=== PATIENT | male | born 1965 | race African-American/Black ===

== ENCOUNTER 2021-10-25 22:20 | Emergency (ER) | payer OTHER ==
[~2021-10-25] VITALS: Ht 172.7 cm; Wt 89.8 kg
[2021-10-25 23:11] LABS: PLATELET COUNT 98 K/uL (142-355)
[2021-10-25 23:20] LABS: POTASSIUM 3.7 mmol/L (3.6-5.2)
[2021-10-26] VITALS: BP 141/71; TEMP 97.9
[2021-10-26] MEDS ORDERED: ALBUTEROL108 MCG/AC INH (07:50)
[2021-10-26] MEDS ORDERED: ASPIRIN 8181 MG PO (07:51)
[2021-10-26] MEDS ORDERED: ASPIRIN ADULT325 MG PO (07:51)
[2021-10-26] MEDS ORDERED: LIPITOR40 MG PO (07:52)
[2021-10-26] MEDS ORDERED: BUDE1AER3 INH (07:53)
[2021-10-26] MEDS ORDERED: CLON0.5T36 PO (07:54)
[2021-10-26] MEDS ORDERED: DICLOFENAC SODIUM1 % TD (07:55)
[2021-10-26] MEDS ORDERED: ELIQUIS5 MG PO (07:56)
[2021-10-26] MEDS ORDERED: FE TABS325 MG PO (07:57)
[2021-10-26] MEDS ORDERED: FURO40TA93 PO (07:58)
[2021-10-26] MEDS ORDERED: IBU800 MG PO (07:59)
[2021-10-26] MEDS ORDERED: INSU100I SC (08:01)
[2021-10-26] MEDS ORDERED: GENERLAC10 GM/15 M PO (08:02)
[2021-10-26] MEDS ORDERED: LEVEMIR FL100 UNIT/M SC (08:03)
[2021-10-26] MEDS ORDERED: METHADONE10 MG PO (08:04)
[2021-10-26] MEDS ORDERED: MONTELUKAST SOD10 MG PO (08:05)
[2021-10-26] MEDS ORDERED: METHOCARBAMOL PO (08:05)
[2021-10-26] MEDS ORDERED: NASACORT A55 MCG/ACT NAS (08:06)
[2021-10-26] MEDS ORDERED: OYSTER SHELL C500 M4 PO (08:07)
[2021-10-26] MEDS ORDERED: PANTOPRAZOLE SO40 M1 PO (08:08)
[2021-10-26] MEDS ORDERED: PREGABALIN150 MG PO (08:08)
[2021-10-26] MEDS ORDERED: FLUO10CA2 PO (08:09)
[2021-10-26] MEDS ORDERED: TAMSULOSIN0.4 MG PO (08:10)
[2021-10-26] MEDS ORDERED: THERA-M PO (08:11)
[2021-10-26] MEDS ORDERED: TRAZODONE HYDR150 MG PO (08:12)
[2021-10-26] MEDS ORDERED: TYLENOL325 MG PO (08:14)
[2021-10-26] MEDS ORDERED: VITAMIN B-121000 MC2 PO (08:14)
[2021-10-26] MEDS ORDERED: ASCO500T18 PO (08:21)
[2021-10-26] MEDS ORDERED: XIFAXAN550 MG PO (08:22)
== END 2021-10-26 00:05 | disposition still patient (30) ==
LOC: ED 22:20
PROVIDERS: Emergency Medicine Emergency Medical Services
DX: R46.89 Other symptoms and signs involving appearance and behavior (principal); L03.116 Cellulitis of left lower limb; Z11.52 Encounter for screening for COVID-19; Z04.6 Encounter for general psychiatric examination, requested by authority
CPT/HCPCS: 36415; 80053; 81000; 85027; 87040; 87070; 87205; 87635; 93005; 96365; 99283; 99284; J2543; U0003

== ENCOUNTER 2023-02-19 18:54 | Emergency (ER) | payer OTHER ==
[~2023-02-19] VITALS: Ht 172.7 cm; Wt 68.0 kg
[~2023-02-19 18:54] MED LIST: ALBUTEROL108 MCG/AC INH; ASCO500T18 PO; ASPIRIN 8181 MG PO; ASPIRIN ADULT325 MG PO; BUDE1AER3 INH; CLON0.5T36 PO; DICLOFENAC SODIUM1 % TD; ELIQUIS5 MG PO; FE TABS325 MG PO; FLUO10CA2 PO; FURO40TA93 PO; GENERLAC10 GM/15 M PO; IBU800 MG PO; INSU100I SC; INSU100P SC; LEVEMIR FL100 UNIT/M SC; LIPITOR40 MG PO; METHADONE10 MG PO; METHOCARBAMOL PO; MONTELUKAST SOD10 MG PO; NASACORT A55 MCG/ACT NAS; OLAN2.5T2 PO; OXCARBAZEPIN300 MG PO; OYSTER SHELL C500 M4 PO; PANTOPRAZOLE SO40 M1 PO; PREGABALIN150 MG PO; ROBAXIN-750750 MG PO; TAMSULOSIN0.4 MG PO; THERA-M PO; TRAZODONE HYDR150 MG PO; TYLENOL325 MG PO; VITAMIN B-121000 MC2 PO; XIFAXAN550 MG PO
[2023-02-19 18:56] VITALS: BP 161/80; TEMP 97.5
[2023-02-19 19:26] LABS: PLATELET COUNT 129 K/uL (142-355)
[2023-02-19 19:32] LABS: POTASSIUM 4.7 mmol/L (3.6-5.2)
[2023-02-20] MEDS ORDERED: BAYER ASPIRIN E81 MG PO (07:51)
[2023-02-20] MEDS ORDERED: LIPITOR40 MG PO (07:52)
[2023-02-20] MEDS ORDERED: FLUOXETINE20 MG PO (07:52)
[2023-02-20] MEDS ORDERED: FURO40TA93 PO (07:53)
[2023-02-20] MEDS ORDERED: MIRALAX17 GM PO (07:55)
[2023-02-20] MEDS ORDERED: MULTIVITAMIN1 TA1 PO (07:56)
[2023-02-20] MEDS ORDERED: MONT10TA PO (07:56)
[2023-02-20] MEDS ORDERED: OYSTER SHELL C500 M4 PO (07:57)
[2023-02-20] MEDS ORDERED: PANTOPRAZOLE 40MG TA PO (07:59)
[2023-02-20] MEDS ORDERED: FAMO20TA4 PO (07:59)
[2023-02-20] MEDS ORDERED: KLOR-CON M1010 MEQ PO (08:01)
[2023-02-20] MEDS ORDERED: PRED20TA27 PO (08:02)
[2023-02-20] MEDS ORDERED: PRO-STAT PO (08:03)
[2023-02-20] MEDS ORDERED: ROPINIROLE0.25 MG PO (08:04)
[2023-02-20] MEDS ORDERED: SENNA PLUS 50-81 CAP PO (08:05)
[2023-02-20] MEDS ORDERED: TRAZ100T PO (08:06)
[2023-02-20] MEDS ORDERED: TAMS0.4C PO (08:06)
[2023-02-20] MEDS ORDERED: TYLENOL325 MG PO (08:07)
[2023-02-20] MEDS ORDERED: B-121000 MC5 PO (08:09)
[2023-02-20] MEDS ORDERED: BUDE1AER3 INH (08:10)
[2023-02-20] MEDS ORDERED: INSUINJ8 SC (08:11)
[2023-02-20] MEDS ORDERED: TRILEPTAL150 MG PO (08:13)
[2023-02-20] MEDS ORDERED: TRILEPTAL300 MG PO (08:14)
[2023-02-20] MEDS ORDERED: PRADAXA150 MG PO (08:16)
[2023-02-20] MEDS ORDERED: BUDE1AER5 INH (08:17)
[2023-02-20] MEDS ORDERED: CLON0.5T36 PO (08:18)
[2023-02-20] MEDS ORDERED: INSULIN LI100 UNIT/1 IM (08:22)
[2023-02-20] MEDS ORDERED: ALBU90AE13 INH (08:23)
[2023-02-20] MEDS ORDERED: BACLOFEN10 MG PO (08:23)
== END 2023-02-19 20:30 | disposition still patient (30) ==
LOC: ED 18:54
PROVIDERS: Emergency Medicine
DX: F32.A Depression, unspecified (principal); R45.1 Restlessness and agitation; R31.9 Hematuria, unspecified; E11.65 Type 2 diabetes mellitus with hyperglycemia; Z79.4 Long term (current) use of insulin; Z11.52 Encounter for screening for COVID-19; Z04.6 Encounter for general psychiatric examination, requested by authority
CPT/HCPCS: 36415; 80053; 81000; 85027; 87635; 93005; 99283; U0003